=== PATIENT | male | born 1965 | race Caucasian/White ===

== ENCOUNTER 2018-12-18 06:50 | Day surgery (SDC) | payer BC ==
[~2018-12-18] VITALS: Ht 175.3 cm; Wt 108.9 kg
[~2018-12-18 06:50] MED LIST: IBUPROFEN600 MG PO; LISINOPRIL20 MG PO; METOPROL TAR25 MG PO; NAPROSYN500 MG PO; SG ASA LOW81 M1 PO; SILVADENE1 % EX; ULTRAM50 MG PO
[2018-12-18 09:51] VITALS: BP 112/65
== END 2018-12-18 09:30 | disposition home or self-care (01) | DRG 951 ==
LOC: ENDO 06:50 → ORM 08:00 → ENDO 08:00
PROVIDERS: ATTEND Surgery
PROC: 0DBC8ZX Excision of Ileocecal Valve, Via Natural or Artificial Opening Endoscopic, Diagnostic (ICD-10-PCS; principal; 2018-12-18)
PROC: 0DB48ZX Excision of Esophagogastric Junction, Via Natural or Artificial Opening Endoscopic, Diagnostic (ICD-10-PCS; 2018-12-18)
PROC: 0DB78ZX Excision of Stomach, Pylorus, Via Natural or Artificial Opening Endoscopic, Diagnostic (ICD-10-PCS; 2018-12-18)
DX: Z12.11 Encounter for screening for malignant neoplasm of colon (principal); K63.89 Other specified diseases of intestine; K21.9 Gastro-esophageal reflux disease without esophagitis; K31.9 Disease of stomach and duodenum, unspecified; K29.70 Gastritis, unspecified, without bleeding; I10 Essential (primary) hypertension; Z86.010 Personal history of colon polyps; Z86.19 Personal history of other infectious and parasitic diseases

== ENCOUNTER 2021-01-30 14:53 | Observation (INO) | payer BC ==
[~2021-01-30] VITALS: Ht 175.3 cm; Wt 100.0 kg
--- NOTE | 2021-01-30 14:55 | NUR ---
PT AMBUALTORY TO ROOM # 6 FOR BEDSIDE TRIAGE.
--- NOTE | 2021-01-30 15:43 | NUR ---
IV INTIATED WITH BLOOD SPECIMENS AND BLOOD CULTURES OBTAINED. SWABS COLLECTED. PT TOLERATED WELL. PT REPORTS NAUSEA, DR HOWELL INFORMED, ORDER RECEIVED.
--- NOTE | 2021-01-30 16:03 | NUR ---
RN TAKE A NEW IV, GIVES MEDS BY MD ORDER SEE CHART AND ORIENTED THE PT ABOUT HOSPITAL RULES READ BACK YES
[2021-01-30 16:09] LABS: HEMATOCRIT 41.5 % (39.0-50.0); IMMATURE GRANULOCYTES 0.2 % (0.0-5.0); MEAN CORPUSCULAR HGB CONC 33.7 g/dL CAL (32.0-36.0); NEUT# 10.1 thou/uL (1.82-7.42); RED BLOOD COUNT 4.51 mill/uL (4.70-6.10); RED CELL DISTRI WIDTH 12.2 % (11.5-15.5)
[2021-01-30 16:17] LABS: ALBUMIN 4.6 g/dL (3.2-5.0); ALKALINE PHOSPHATASE 78 u/l (38-126); ANION GAP 16 (6-22 (CALC)); BILIRUBIN, TOTAL 0.6 mg/dL (0.0-1.4); BUN 17 mg/dL (9-20); BUN/CREATININE RATIO 25 (12-20 (CALC)); CARBON DIOXIDE 25 mmol/l (22-30); CHLORIDE 99 mmol/l (95-108); CREATININE 0.7 mg/dL (0.7-1.3); GFR > 60 ML/MIN (>=60 (CALC)); GFR FOR AFR.AMER. > 60 ML/MIN (>=60 (CALC)); LIPASE 64 u/l (23-300); POTASSIUM 3.9 mmol/l (3.5-5.1); SGOT/AST 35 u/l (17-59); SODIUM 136 mmol/l (137-146); TOTAL PROTEIN 7.9 g/dL (6.3-8.2)
[2021-01-30 16:29] LABS: ACT PARTIAL THROMBO TIME 21.3 SECONDS (20.0-32.5); PROTHROMBIN TIME 10.6 SECONDS (9.0-12.5)
--- NOTE | 2021-01-30 18:00 | NUR ---
PT RESTING ON STRETCHER IN NAD. RESP EVEN AND UNLABORED. SKIN WARM AND DRY. CONVERTIBLE POWER SHOVEL OPERATOR IN PLACE. ADVISED PT OF CONT WAIT TIME FOR RESULTS. VERBALIZED UNDERSTANDING. CONVERTIBLE POWER SHOVEL OPERATOR IN PLACE. CALL LIGHT WITHIN REACH. BEDSIDE.
--- NOTE | 2021-01-30 19:00 | NUR ---
SHELBYAR SENT TO M/S
--- NOTE | 2021-01-30 20:35 | NUR ---
REPORT RECIVED FROM Lilian STAPLES RN
--- NOTE | 2021-01-30 20:44 | NUR ---
[employer] GIVE REPORT TO SHAY JUAN THE NURSE FOR ROOM 272
--- NOTE | 2021-01-30 20:45 | NUR ---
GROCERY CLERK MARKING THE PT IN WHEELCHAIR AND
[2021-01-30 20:56] VITALS: BP 129/76
--- NOTE | 2021-01-30 21:05 | NUR ---
PATIENT ALERT AND ORIENTED X3. #20 INFUSING NORMAL SALINE IN THE LEFT AC, SALINE LOCK. PATIENT ON TELEMETRY. ASSEMENT COMPLETED AT THIS TIME. LUNGS CLEAR BILATERALLY, HEART SOUNDS NORMAL, DENIES ANY CHEST PAIN AT THIS TIME. ALL SKIN INTACT, NO SWELLING NOTED. VS WITHIN NORMAL LIMITS. PATIENT IS ABLE TO AMBULATE WITHOUT ASSITANCE, URINAL AT BEDSIDE. PATIENT EDUCATED ON PLAN OF CARE, VERALIZES UNDERSTANDING. DENIES ANY FURTHER NEEDS, STATES HE WOULD LIKE TO HAVE SOME TYLENOL TO BE ABLE TO SLEEP, BUT ONLY AFTER EATING. MEAL PROVIDED TO PATIENT, INSTRUCTED ON USE OF CALL LIGHT SO SAFETY AND ANY FURTHER NEEDS.
--- NOTE | 2021-01-30 21:05 | NUR ---
PATIENT ARRIVED TO ROOM VIA WHEEL CHAIR ACCOMPANIED BY ER STAFF.
[2021-01-30 21:24] LABS: URINE BILIRUBIN - DIPSTICK NEGATIVE (NEGATIVE); URINE BLOOD DIPSTICK TRACE-INTACT (NEGATIVE); URINE COLOR YELLOW; URINE GLUCOSE - DIPSTICK NEGATIVE (NEGATIVE); URINE KETONE TRACE mg/dL (NEGATIVE); URINE LEUK ESTERASE NEGATIVE (NEGATIVE); URINE PROTEIN - DIPSTICK NEGATIVE (NEG-TRACE); URINE SPECIFIC GRAVITY 1.015; URINE UROBILINOGEN - DIPSTICK 0.2 E.U./dL (0.2)
[2021-01-30 21:25] LABS: URINE NITRITE - DIPSTICK NEGATIVE (Negative)
--- NOTE | 2021-01-30 22:59 | NUR ---
PATIENT REQUESTING TYLENOL, MEDICATED PER EMAR, SEE EMAR
[2021-01-30 23:15] VITALS: BP 126/71
--- NOTE | 2021-01-31 00:30 | NUR ---
PATIENT USING THE RESTROOM AT THIS TIME. DENIES ANY FURTHER NEEDS. WILL CON'T TO MONITOR.
[2021-01-31 04:02] VITALS: BP 130/80
--- NOTE | 2021-01-31 04:27 | NUR ---
PATIENT REQUESTING TYLENOL FOR HEADACHE AT THIS TIME. MEDICATED PER EMAR, SEE EMAR.
--- NOTE | 2021-01-31 07:00 | NUR ---
SHIFT CHANGE REPORT, PT AWAKE ALERT AND ORIENTED SITTING UP IN BED, NO C/O DISCOMFORT, TELE MONITOR IN PLACE, IVF INFUSING, CALL JOHNSON IN REACH AND BED LOCKED IN LOWEST POSITION.
[2021-01-31 07:33] VITALS: BP 120/76
[2021-01-31 10:35] VITALS: BP 113/55
[2021-01-31 15:29] VITALS: BP 113/72
[2021-01-31 19:00] VITALS: BP 123/73
--- NOTE | 2021-01-31 19:00 | NUR ---
REPORT RECIVED FROM Shawnee PAUL RN
--- NOTE | 2021-01-31 21:40 | NUR ---
PATIENT RESTING COMFORTABLY, ON THE PHONE WITH . ASSESMENT COMPLETED AT THIS TIME. LUNG SOUNDS DIMISHED IN ALL WILSON, NORMAL HEART SOUNDS, ACTIVE BOWEL SOUNDS, LAST BOWEL MOVEMENT 01/30/21. PATIENT DENIES ANY PAIN. NON PRODUCTIVE COUGH WITNESSED AT THIS TIME. PATIENT ENCOURANGED TO USE IS. TRCACE EDEMA NOTED ON BILATERAL ANKLES, INTACT SKIN THROUGHOUT. #20 IN LEFT AC INFUSING NORMAL SALINE AT 100ML/HR. PLAN OF CARE REVIEWED AT THIS TIME, PATIENT ENCOURAGED TO CALL IF ANY NEEDS ARISE. CALL LIGHT AND BEDSIDE TABLE WITHIN REACH.
--- NOTE | 2021-01-31 21:40 | NUR ---
PATIENT MEDICATED PER EMAR, SEE EMAR
[2021-02-01] VITALS: BP 117/77
--- NOTE | 2021-02-01 00:45 | NUR ---
PATIENT UP USING THE URINAL AT THIS TIME, DENIES ANY PAIN OR FURTHER NEEDS.
[2021-02-01 04:00] VITALS: BP 109/68
--- NOTE | 2021-02-01 04:54 | NUR ---
PATIENT SLEEPING SOUNDLY. CALL LIGHT AND BEDSIDE TABLE WITHIN REACH
[2021-02-01 06:22] LABS: MEAN CORPUSCULAR HGB 31.4 pG CALC (26.0-32.0); MEAN CORPUSCULAR HGB CONC 33.8 g/dL CAL (32.0-36.0); RED BLOOD COUNT 3.69 mill/uL (4.70-6.10); RED CELL DISTRI WIDTH 12.3 % (11.5-15.5)
[2021-02-01 06:27] LABS: HEMATOCRIT 34.3 % (39.0-50.0); HEMOGLOBIN 11.6 g/dl (14.0-18.0)
[2021-02-01 06:53] LABS: ANION GAP 8 (6-22 (CALC)); BUN 16 mg/dL (9-20); BUN/CREATININE RATIO 20 (12-20 (CALC)); CARBON DIOXIDE 27 mmol/l (22-30); CHLORIDE 105 mmol/l (95-108); CREATININE 0.8 mg/dL (0.7-1.3); GFR > 60 ML/MIN (>=60 (CALC)); GFR FOR AFR.AMER. > 60 ML/MIN (>=60 (CALC)); MAGNESIUM 1.9 mg/dL (1.6-2.3); POTASSIUM 4.2 mmol/l (3.5-5.1); SODIUM 136 mmol/l (137-146)
--- NOTE | 2021-02-01 08:29 | NUR ---
SHIFT CHANGE REPORT, PT AWAKE ALERT AND ORIENTED SITTING UP ON SIDE OF BED, NO C/O DISCOMFORT AT THIS TIME, TELE MONITOR IN PLACE, CALL JOHNSON IN REACH AND BED LOCKED IN LOWEST POSITION.
[2021-02-01 09:20] VITALS: BP 142/73
[2021-02-01 09:24] VITALS: BP 142/73
[2021-02-01] MEDS ORDERED: ZPAK PO (10:58)
--- NOTE | 2021-02-01 12:14 | NUR ---
Discharge instructions given. Patient verbalizes understanding of same. Discharged in fair condition via Ambulatory to Home with family. All belongings sent with pt.
== END 2021-02-01 11:57 | disposition home or self-care (01) | DRG 194 ==
LOC: ED 14:53 → ED-I 18:28 → ED 18:41 → MS2 18:42
PROVIDERS: Nurse Practitioner; ADMIT Internal Medicine; ATTEND Internal Medicine
DX: J18.9 Pneumonia, unspecified organism (principal); E87.2 Acidosis; R09.02 Hypoxemia; I10 Essential (primary) hypertension; Z20.822 Contact with and (suspected) exposure to COVID-19
CPT/HCPCS: G0378; J1650; Q9967

== ENCOUNTER 2021-06-07 18:45 | Emergency (ER) | payer BC ==
[~2021-06-07] VITALS: Ht 175.3 cm; Wt 107.0 kg
[~2021-06-07 18:45] MED LIST changes: +ZPAK PO
[2021-06-07] MEDS ORDERED: KEFLEX500 MG PO (19:27)
[2021-06-07 20:16] VITALS: BP 159/74
== END 2021-06-07 20:16 | disposition home or self-care (01) | DRG 605 ==
LOC: ED 18:45
PROC: 0HQGXZZ Repair Left Hand Skin, External Approach (ICD-10-PCS; principal; 2021-06-07)
DX: S61.012A Laceration without foreign body of left thumb without damage to nail, initial encounter (principal); I10 Essential (primary) hypertension; W26.8XXA Contact with other sharp object(s), not elsewhere classified, initial encounter; Y93.K9 Activity, other involving animal care; Y92.73 Farm field as the place of occurrence of the external cause